=== PATIENT | male | born 1985 | race Caucasian/White ===

== ENCOUNTER 2020-12-15 13:46 | Emergency (ER) | payer OTHER ==
[2020-12-15 14:26] VITALS: BP 124/80; PULSE 77; RESP 20; TEMP 97.9
--- NOTE | 2020-12-15 14:27 | ED ---
General Adult HPI - General Source: patient, RN notes reviewed Mode of arrival: ambulatory Limitations: no limitations <Tong Mcrae - Last Filed: 12/15/20 14:24> <Mary Zurita - Last Filed: 12/15/20 17:16> - General Stated complaint: covid exposure Time Seen by Provider: 12/15/20 14:22 - History of Present Illness Initial comments: 35-year-old male presents emergency Department chief complaint of covid. Patient states his girlfriend recently tested positive for covid Patient states that he has no symptoms currently. Denies fevers chills bodyaches cough congestion or sore throat. Patient is concerned that he was exposed. (Tong Mcrae) - Related Data Allergies Allergy/AdvReac Type Severity Reaction Status Date / Time sulfamethoxazole Allergy Rash/Hives Verified 12/15/20 14:26 [From Bactrim] trimethoprim [From Bactrim] Allergy Rash/Hives Verified 12/15/20 14:26 Review of Systems ROS Other: All systems not noted in ROS Statement are negative. <Tong Mcrae - Last Filed: 12/15/20 14:24> ROS Other: All systems not noted in ROS Statement are negative. <Mary Zurita - Last Filed: 12/15/20 17:16> ROS Statement: Those systems with pertinent positive or pertinent negative responses have been documented in the HPI. General Exam General appearance: alert, in no apparent distress Head exam: Present: atraumatic, normocephalic, normal inspection Neck exam: Present: normal inspection. Absent: tenderness, meningismus, lymphad enopathy Respiratory exam: Present: normal lung sounds bilaterally. Absent: respiratory distress, wheezes, rales, rhonchi, stridor Cardiovascular Exam: Present: regular rate, normal rhythm, normal heart sounds. Absent: systolic murmur, diastolic murmur, rubs, gallop, clicks Neurological exam: Present: alert Skin exam: Present: warm, dry, intact, normal color. Absent: rash <Tong Mcrae - Last Filed: 12/15/20 14:24> Course Vital Signs 12/15/20 14:24 Temperature 97.9 F Pulse Rate 77 Respiratory 20 Rate Blood Pressure 124/80 O2 Sat by Pulse 98 Oximetry Medical Decision Making <Mary Zurita - Last Filed: 12/15/20 17:16> - Medical Decision Making sno symptoms, wanted testing. covid (-). pt would like to be called with results. i called patient he did not answer. left voicemail asking patient to call back. (Mary Zurita) - Lab Data Lab Results 12/15/20 Range/Units 14:28 Coronavirus (PCR) Not Detected (Not Detectd) Disposition <Tong Mcrae - Last Filed: 12/15/20 14:24> Is patient prescribed a controlled substance at d/c from ED?: No Time of Disposition: 14:43 <Mary Zurita - Last Filed: 12/15/20 17:16> Clinical Impression: Exposure to COVID-19 virus Disposition: HOME SELF-CARE Condition: Good Additional Instructions: Please use medication as discussed. Please follow-up with family doctor in the next 2 days, quarantine for the next 12 days. Please return to emergency room if the symptoms increase or worsen or for any other concerns. Referrals: None,Stated [Primary Care Provider] - 1-2 days
== END 2020-12-15 14:50 | disposition home or self-care (01) ==
LOC: EC 13:46
DX: Z20.822 Contact with and (suspected) exposure to COVID-19 (principal)
CPT/HCPCS: 87635; 99283

== ENCOUNTER 2021-08-02 14:31 | Emergency (ER) | payer OTHER ==
[2021-08-02 14:41] VITALS: BP 151/89; PULSE 85; RESP 18; TEMP 98.2
[2021-08-02] MEDS ORDERED: PENICILLIN VK 500MG STARTER 4 TAB BTL PO STA (15:24)
[2021-08-02] MEDS ORDERED: ACET/COD 300 MG/30 MG STARTER PACK 6 TAB BTL PO STA (15:24)
[2021-08-02] MEDS ORDERED: IBUPROFEN 600 MG STARTER PACK 4 TAB BTL PO STA (15:24)
--- NOTE | 2021-08-02 15:27 | ED ---
ENT HPI - General Chief complaint: Dental/Oral Stated complaint: Oral Pain Time Seen by Provider: 08/02/21 14:43 Source: patient, RN notes reviewed Mode of arrival: ambulatory Limitations: no limitations - History of Present Illness Initial comments: This a 36-year-old male presents emergency from chief complaint of dental pain. Patient states she has poor dentition states that he is feeling is starting of an abscess in his upper hip region. He states he woke up with a mild swelling pain is mild this time but states that he's had bad infections in the past no fevers chills no other complaints. - Related Data Previous Rx's Medication Instructions Recorded Penicillin V Potassium [Pen Vee K] 500 mg PO QID #40 tablet 08/02/21 Allergies Allergy/AdvReac Type Severity Reaction Status Date / Time sulfamethoxazole Allergy Rash/Hives Verified 08/02/21 14:41 [From Bactrim] trimethoprim [From Bactrim] Allergy Rash/Hives Verified 08/02/21 14:41 Review of Systems ROS Statement: Those systems with pertinent positive or pertinent negative responses have been documented in the HPI. ROS Other: All systems not noted in ROS Statement are negative. Past Medical History Past Medical History: No Reported History History of Any Multi-Drug Resistant Organisms: None Reported Past Surgical History: No Surgical Hx Reported Past Psychological History: No Psychological Hx Reported Smoking Status: Current every day smoker Past Alcohol Use History: None Reported Past Drug Use History: Marijuana General Exam Limitations: no limitations General appearance: alert, in no apparent distress Head exam: Present: atraumatic, normocephalic, normal inspection ENT exam: Present: mucous membranes moist. Absent: normal oropharynx (Edentulous, erythema of the upper gum, mild swelling noted no drainable abscess) Neck exam: Present: normal inspection. Absent: tenderness, meningismus, lymphadenopathy Respiratory exam: Present: normal lung sounds bilaterally. Absent: respiratory distress, wheezes, rales, rhonchi, stridor Cardiovascular Exam: Present: regular rate, normal rhythm, normal heart sounds. Absent: systolic murmur, diastolic murmur, rubs, gallop, clicks Course Vital Signs 08/02/21 14:37 Temperature 98.2 F Pulse Rate 85 Respiratory 18 Rate Blood Pressure 151/89 O2 Sat by Pulse 99 Oximetry Medical Decision Making - Medical Decision Making Patient has dental infection will be discharged on Pen-Vee K return parameters were discussed patient with follow-up with dentist. Disposition Clinical Impression: Dental abscess Disposition: HOME SELF-CARE Condition: Stable Instructions (If sedation given, give patient instructions): Dental Abscess (ED) Additional Instructions: Please return to the Emergency Department if symptoms worsen or any other concerns. Prescriptions: Penicillin V Potassium [Pen Vee K] 500 mg PO QID #40 tablet Is patient prescribed a controlled substance at d/c from ED?: No Referrals: None,Stated [Primary Care Provider] - 1-2 days Time of Disposition: 15:26
== END 2021-08-02 15:34 | disposition home or self-care (01) ==
LOC: EC 14:31
DX: K04.7 Periapical abscess without sinus (principal); F17.200 Nicotine dependence, unspecified, uncomplicated; Z88.2 Allergy status to sulfonamides; Z88.1 Allergy status to other antibiotic agents
CPT/HCPCS: 99283

== ENCOUNTER 2023-05-09 23:47 | Emergency (ER) | payer OTHER ==
[2023-05-10] VITALS: RESP 18
[2023-05-10] MEDS ORDERED: LIDOCAINE 1% INJ 10MG/ML (20 ML MDV) SQ ONE (00:13)
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
[2023-05-10 01:36] VITALS: BP 133/96
[2023-05-10 01:57] VITALS: PULSE 108; TEMP 98.2
== END 2023-05-10 01:56 | disposition home or self-care (01) ==
LOC: EC 23:47
DX: S01.01XA Laceration without foreign body of scalp, initial encounter (principal); F17.200 Nicotine dependence, unspecified, uncomplicated; F12.90 Cannabis use, unspecified, uncomplicated; Z88.2 Allergy status to sulfonamides; Z88.1 Allergy status to other antibiotic agents; Y04.8XXA Assault by other bodily force, initial encounter
CPT/HCPCS: 12001; 99283

== ENCOUNTER 2024-02-04 13:29 | Emergency (ER) | payer OTHER ==
[2024-02-04 14:20] LABS: Appearance,Urine Cloudy (Clear); Bacteria,Urine Rare /hpf; Bilirubin,Urine Negative (Negative); Blood,Urine Negative (Negative); Color,Urine Yellow; Glucose,Urine (UA) Negative (Negative); Hyaline Casts,Urine 1 /lpf (0-2); Ketones,Urine Negative (Negative); Leukocyte Esterase,Urine Negative (Negative); Mucus,Urine Moderate /hpf; Nitrite,Urine Negative (Negative); Protein,Urine 1+ (Negative); RBC,Urine 2 /hpf (0-5); Specific Gravity,Urine 1.014 (1.001-1.035); Urobilinogen,Urine <2.0 mg/dL (<2.0); WBC,Urine <1 /hpf (0-5)
[2024-02-04 14:27] VITALS: TEMP 97.8
--- NOTE | 2024-02-04 16:04 | ED ---
Male Urogenital HPI - General Chief complaint: Urogenital Stated complaint: Urogential Time Seen by Provider: 02/04/24 15:38 Source: patient, RN notes reviewed, old records reviewed Mode of arrival: ambulatory Limitations: no limitations - History of Present Illness Initial comments: This is a 39-year-old male to the ER for evaluation patient [facility] for evaluation of severe scrotal pain and swelling. Symptoms have been progressively worsening for a few days now and the pain is getting worse. Otherwise no dysuria no other complaints MD Complaint: testicle pain, testicle swelling, dysuria -: days(s) Radiation: none Severity: moderate Severity scale (1-10): 7 Quality: burning Consistency: constant Improves with: none Worsens with: none - Related Data Previous Rx's Medication Instructions Recorded Penicillin V Potassium [Pen Vee K] 500 mg PO QID #40 tablet 08/02/21 Allergies Allergy/AdvReac Type Severity Reaction Status Date / Time sulfamethoxazole Allergy Rash/Hives Verified 08/02/21 14:41 [From Bactrim] trimethoprim [From Bactrim] Allergy Rash/Hives Verified 08/02/21 14:41 Review of Systems ROS Statement: Those systems with pertinent positive or pertinent negative responses have been documented in the HPI. ROS Other: All systems not noted in ROS Statement are negative. Past Medical History Past Medical History: No Reported History History of Any Multi-Drug Resistant Organisms: None Reported Past Surgical History: No Surgical Hx Reported Past Psychological History: No Psychological Hx Reported Smoking Status: Current every day smoker Past Alcohol Use History: None Reported Past Drug Use History: Marijuana General Exam Limitations: no limitations General appearance: alert, in no apparent distress Head exam: Present: atraumatic, normocephalic, normal inspection Eye exam: Present: normal appearance, PERRL, EOMI. Absent: scleral icterus, conjunctival injection, periorbital swelling ENT exam: Present: normal exam, mucous membranes moist Neck exam: Present: normal inspection. Absent: tenderness, meningismus, lymphadenopathy Respiratory exam: Present: normal lung sounds bilaterally. Absent: respiratory distress, wheezes, rales, rhonchi, stridor Cardiovascular Exam: Present: regular rate, normal rhythm, normal heart sounds. Absent: systolic murmur, diastolic murmur, rubs, gallop, clicks GI/Abdominal exam: Present: soft, normal bowel sounds. Absent: distended, tenderness, guarding, rebound, rigid Extremities exam: Present: normal inspection, full ROM, normal capillary refill. Absent: tenderness, pedal edema, joint swelling, calf tenderness Back exam: Present: normal inspection Neurological exam: Present: alert, oriented X3, CN II-XII intact Psychiatric exam: Present: normal affect, normal mood Skin exam: Present: warm, dry, intact, normal color. Absent: rash Course Vital Signs 02/04/24 02/04/24 13:47 17:44 Temperature 97.8 F Pulse Rate 83 77 Respiratory 20 18 Rate Blood Pressure 156/98 126/81 O2 Sat by Pulse 99 100 Oximetry - Reevaluation(s) Reevaluation #1: 02/04/24 17:57 Records reviewed Reevaluation #2: 02/04/24 17:58 Patient symptoms improved here in the ER Reevaluation #3: 02/04/24 17:58 With patient informed of results and questions answered Reevaluation #4: Was pt. sent in by a medical professional or institution (Dr. PA, GARDEN IMPLEMENT MECHANIC, urgent care, hospital, or senior care...) When possible be specific @ -no Did you speak to anyone other than the patient for history (EMS, parent, family, police, friend...)? What history was obtained from this source @ -no Did you review nursing and triage notes (agree or disagree)? Why? @ -agree Are old charts reviewed (outside hosp., previous admission, EMS record, old EKG, old radiological studies, urgent care reports/EKG's, senior care records)? Report findings @ -yes Differential Diagnosis (chest pain, altered mental status, abdominal pain women, abdominal pain men, vaginal bleeding, weakness, fever, dyspnea, syncope, headache, dizziness, GI bleed, back pain, seizure, CVA, palpatations, mental health, musculoskeletal)? @ -prior EKG interpreted by me (3pts min.). @ -no X-rays interpreted by me (1pt min.). @ -no CT interpreted by me (1pt min.). @ -no U/S interpreted by me (1pt. min.). @ -Yes with epididymal orchitis What testing was considered but not performed or refused? (CT, X-rays, U/S, labs)? Why? @ -none What meds were considered but not given or refused? Why? @ -none Did you discuss the management of the patient with other professionals (professionals i.e. , PA, GARDEN IMPLEMENT MECHANIC, lab, RT, psych nurse, social security benefits interviewer, construction management assistant, teacher, mortgage loan officer originator, case consultant)? Give summary @ -no Was smoking cessation discussed for >3mins.? @ -no Were there social determinants of health that impacted care today? How? (Homelessness, low income, unemployed, alcoholism, drug addiction, transportation, low edu. Level, literacy, decrease access to med. care, [facility], rehab)? @ -none Was there de-escalation of care discussed even if they declined (Discuss DNR or withdrawal of care, Hospice)? DNR status @ -no What co-morbidities impacted this encounter? (DM, HTN, Smoking, COPD, CAD, Cancer, CVA, ARF, Chemo, Hep., AIDS, mental health diagnosis, sleep apnea, morbid obesity)? @ -none Was patient admitted / discharged? Hospital course, mention meds given and route, prescriptions, significant lab abnormalities, going to OR and other pertinent info. @ - 39 male to ER for evaluation of testicular swelling. Patient does have findings of epididymal orchitis patient was placed on antibiotics and can be discharged home Discharge Was critical care preformed (if so, how long)? @ -no Undiagnosed new problem with uncertain prognosis? @ -no Drug Therapy requiring intensive monitoring for toxicity (Heparin, Nitro, Insulin, Cardizem)? @ -no Were any procedures done? @ -no Diagnosis/symptom? @ -Scrotal pain epididymal orchitis Acute, or Chronic, or Acute on Chronic? @ -Acute Uncomplicated (without systemic symptoms) or Complicated (systemic symptoms)? @ -Complicated Side effects of treatment? @ -no Exacerbation, Progression, or Severe Exacerbation? @ -exacerbation Poses a threat to life or bodily function? How? (Chest pain, USA, PA, pneumonia, PE, COPD, DKA, ARF, appy, cholecystitis, CVA, Diverticulitis, Homicidal, Suicidal, threat to staff... and all critical care pts) @ -no Reevaluation #5: Differential Abdominal Pain Men: Appendicitis, cholecystitis, diverticulosis, ischemic bowel, pancreatitis, hepatitis, UTI, gastroenteritis, AAA, incarcerated hernia, bowel obstruction, constipation, inflammatory bowel, hepatitis, peptic ulcer disease, splenic in farction, perforated viscus, testicular torsion, this is not meant to be an all- inclusive list Medical Decision Making - Medical Decision Making 39 male to ER for evaluation of testicular swelling. Patient does have findings of epididymal orchitis patient was placed on antibiotics and can be discharged home - Lab Data Lab Results 02/04/24 Range/Units 13:55 Urine Color Yellow Urine Appearance Cloudy (Clear) Urine pH 6.0 (5.0-8.0) Ur Specific Pione[place] 1.014 (1.001-1.035) Urine Protein 1+ H (Negative) Urine Glucose (UA) Negative (Negative) Urine Ketones Negative (Negative) Urine Blood Negative (Negative) Urine Nitrite Negative (Negative) Urine Bilirubin Negative (Negative) Urine Urobilinogen <2.0 (<2.0) mg/dL Ur Leukocyte Esterase Negative (Negative) Urine RBC 2 (0-5) /hpf Urine WBC <1 (0-5) /hpf Urine Bacteria Rare H (None) /hpf Hyaline Casts 1 (0-2) /lpf Urine Mucus Moderate H (None) /hpf - Radiology Data Radiology results: report reviewed (Ultrasound positive for epididymal orchitis), image reviewed Disposition Clinical Impression: Epididymo-orchitis Disposition: HOME SELF-CARE Condition: Good Instructions (If sedation given, give patient instructions): Epididymo-Orchitis (ED) Is patient prescribed a controlled substance at d/c from ED?: No Referrals: Venkata Tamayo MD [Primary Care Provider] - 1-2 days Time of Disposition: 18:00
--- NOTE | 2024-02-04 17:37 | US ---
EXAMINATION TYPE: US scrotum with doppler. Grayscale and color Doppler Duplex imaging performed of marilee bae scrotum. DATE OF EXAM: 02/04/2024 COMPARISON: NONE CLINICAL INDICATION: Male, 39 years old with history of pain; pain x 3 days EXAM MEASUREMENTS: TESTICLES: Right Testicle: 3.7x2.2x2.2 cm Left Testicle: 3.7x2.5x2.9 cm EPIDIDYMIS HEAD: Right Epididymis: 1.0 cm Left Epididymis: 0.8 cm Doppler performed to assess for testicular vascularity; good bilateral color flow and waveforms are s een. There is no evidence of testicular torsion. Presence of hydroceles: bilateral Presence of varicoceles: no scrotal wall thickening measures up to 0.6 evidence of bilateral epididymo-orchitis with increase symmetrical blood flow to the bilateral testic les and epididymides IMPRESSION: 1. Findings suggestive for bilateral orchitis and epididymitis.
[2024-02-04 17:50] VITALS: BP 126/81; PULSE 77; RESP 18
[2024-02-04] MEDS: CIPROFLOXACIN HCL 500 MG TAB PO STA (18:06)
[2024-02-04] MEDS: AZITHROMYCIN 500 MG TAB PO STA (18:06)
[2024-02-04] MEDS: cefTRIAXone 250 MG VIAL IM STA (18:07)
== END 2024-02-04 18:19 | disposition home or self-care (01) ==
LOC: EC 13:29
DX: N45.3 Epididymo-orchitis (principal); N43.3 Hydrocele, unspecified; F17.200 Nicotine dependence, unspecified, uncomplicated; F12.90 Cannabis use, unspecified, uncomplicated; Z88.2 Allergy status to sulfonamides; Z88.1 Allergy status to other antibiotic agents
CPT/HCPCS: 99284; 96372; 81001; 93975; 76870; J0696